=== PATIENT | female | born 1975 | race Caucasian/White ===

== ENCOUNTER 2021-12-29 12:40 | Observation (INO) ==
[2021-12-29 14:53] LABS: Amorphous Sediment,Urine Few per hpf (None-Few); Bilirubin,Urine Negative (Negative); Blood,Urine Large (Negative); Clarity,Urine Ex.Turbid (Clear); Color,Urine Yellow (Yellow); Glucose,Urine (UA) Normal (Normal); Ketones,Urine Negative (Negative); Leukocyte Esterase,Urine Moderate (Negative); Mucus,Urine Few per lpf (None-Few); Nitrite,Urine Negative (Negative); PH,Urine 7.5 pH Units (5.0-8.0); Protein,Urine >=300 mg/dL (Neg-Trace); RBC,Urine TNTC per hpf (0-3); Specific Gravity,Urine 1.028 (1.010-1.025); Squamous Epithelial Cell,Urine Moderate per hpf (None-Few); WBC,Urine 50-100 per hpf (0-3)
[2021-12-29] MEDS ORDERED: Morphine Sulfate 2 MG/ML SYRINGE IVP STA (18:07)
[2021-12-29] MEDS ORDERED: Melatonin 3 MG TABLET PO PRN (18:11)
[2021-12-29] MEDS ORDERED: Mag Hydrox/Al Hydrox/Simeth 30 ML UDC PO PRN (18:11)
[2021-12-29] MEDS ORDERED: Naloxone 0.4 MG/ML INJ IVP PRN (18:11)
[2021-12-29] MEDS ORDERED: MOM Conc 10 ML UD.LIQ PO PRN (18:11)
[2021-12-29] MEDS ORDERED: Acetaminophen 325 MG TABLET PO PRN (18:11)
[2021-12-29] MEDS ORDERED: Ondansetron 4 MG/2 ML VIAL IVP PRN (18:11)
[2021-12-29 18:14] LABS: Basophils % 0.4 %; Eosinophils % 0.5 %; Hematocrit 41.8 % (35.3-44.9); Immature Granulocytes % 0.2 % (0-4); Lymphocytes # 1.4 K/mcL (0.6-4.6); Lymphocytes % 24.8 %; Mean Corpuscular HGB Conc 33.5 g/dL (31.6-35.5); Mean Corpuscular Hemoglobin 30.2 pg (28.0-33.3); Mean Corpuscular Volume 90.1 fL (83.0-100.0); Mean Platelet Volume 12.6 fL (9.4-12.4); Monocytes # 0.4 K/mcL (0.0-1.3); Monocytes % 6.4 %; Neutrophils # 3.8 K/mcL (1.6-8.9); Platelet Count 165 K/mcL (140-400); Red Blood Count 4.64 M/mcL (3.82-4.97); Red Cell Distribution Width 13.2 % (11.5-14.5); Segmented Neutrophils % 67.7 %; White Blood Count 5.7 K/mcL (4.3-11.1)
[2021-12-29] MEDS ORDERED: Morphine Sulfate 2 MG/ML SYRINGE IVP PRN (18:15)
[2021-12-29] MEDS: 0.9 % Sodium Chloride 1,000 ML IVC SCH (18:36)
[2021-12-29 18:40] LABS: Alanine Aminotransferase 14 Units/L (7-52); Albumin 4.7 g/dL (3.5-5.7); Alkaline Phosphatase 52 Units/L (34-104); Aspartate Amino Transferase 15 Units/L (13-39); BUN/Creatinine Ratio 15 (6-26); Bilirubin,Direct 0.1 mg/dL (0.0-0.2); Bilirubin,Indirect 0.7 mg/dL (0.0-1.0); Bilirubin,Total 0.8 mg/dL (0.3-1.0); Blood Urea Nitrogen 14 mg/dL (6-20); Calcium 9.5 mg/dL (8.6-10.3); Carbon Dioxide 27 mEq/L (23-29); Chloride 104 mEq/L (98-107); Globulin 2.4 g/dL (2.4-3.5); Glucose 93 mg/dL (70-105); Lipase 19 Units/L (11-82); Osmolality,Calculated 288 (280-300); Potassium 3.6 mEq/L (3.5-5.1); Sodium 139 mEq/L (136-145); Total Protein 7.1 g/dL (6.4-8.9); eGFR For African Americans > 60 (> 60); eGFR For Non-African Americans > 60 (> 60)
[2021-12-29] MEDS ORDERED: cefTRIAXone 1,000 MG in 0.9 % Sodium Chloride Mini Bag 100 ML IVP SCH (19:00)
[2021-12-29] MEDS ORDERED: SUMAtriptan succinate 50 MG TABLET PO ONE (23:09)
[2021-12-29] MEDS ORDERED: Acetaminophen/Butalbital/CaffeineTABLET PO PRN (23:59)
[2021-12-30 01:54] LABS: Hematocrit 37.2 % (35.3-44.9); Mean Corpuscular HGB Conc 33.1 g/dL (31.6-35.5); Mean Corpuscular Hemoglobin 29.7 pg (28.0-33.3); Mean Corpuscular Volume 89.9 fL (83.0-100.0); Platelet Count 128 K/mcL (140-400); Red Blood Count 4.14 M/mcL (3.82-4.97); Red Cell Distribution Width 13.1 % (11.5-14.5); White Blood Count 5.2 K/mcL (4.3-11.1)
[2021-12-30 01:57] LABS: Hemoglobin 12.3 g/dL (11.5-15.4)
[2021-12-30 02:15] LABS: BUN/Creatinine Ratio 17 (6-26); Blood Urea Nitrogen 14 mg/dL (6-20); Calcium 8.4 mg/dL (8.6-10.3); Carbon Dioxide 26 mEq/L (23-29); Chloride 107 mEq/L (98-107); Glucose 120 mg/dL (70-105); Magnesium 1.9 mg/dL (1.6-2.6); Osmolality,Calculated 292 (280-300); Potassium 3.3 mEq/L (3.5-5.1); Sodium 140 mEq/L (136-145); eGFR For African Americans > 60 (> 60); eGFR For Non-African Americans > 60 (> 60)
[2021-12-30] MEDS: 0.9 % Sodium Chloride 1,000 ML IVC SCH (08:36)
[2021-12-30] MEDS ORDERED: hydrOXYzine pamoate 25 MG CAPSULE PO PRN ×2 (08:57→18:46)
[2021-12-30] MEDS ORDERED: Ubrogepant [Ubrelvy] 100 MG Tablet PO PRN (08:57)
[2021-12-30] MEDS ORDERED: Lactobacillus 1 EACH CAP.SPRINK PO SCH (09:00)
[2021-12-30] MEDS ORDERED: DEXTROAMPHETAMINE PO SCH (09:00)
[2021-12-30] MEDS ORDERED: AMPHETAMINE PO SCH (09:00)
[2021-12-30] MEDS ORDERED: Ketorolac 30 MG/ML VIAL IVP ONE (12:14)
[2021-12-30] MEDS ORDERED: Lidocaine -MPF 2% 5 ML VIAL ONE (16:59)
[2021-12-30] MEDS ORDERED: *HR* Midazolam HCl 2 MG/2 ML VIAL ONE (17:00)
[2021-12-30] MEDS ORDERED: *HR* Propofol 200 MG/20 ML VIAL IVP ONE (17:00)
[2021-12-30] MEDS ORDERED: *HR* FentaNYL (PF) 100 MCG/2 ML VIAL ONE (17:00)
[2021-12-30] MEDS ORDERED: *HR* HYDROmorphone PF 0.5 MG/0.5 ML SYRINGE IVP PRN (17:12)
[2021-12-30] MEDS ORDERED: *HR* OxyCODONE Immed Rel 5 MG TABLET PO PRN (17:12)
[2021-12-30] MEDS ORDERED: Ondansetron 4 MG/2 ML VIAL ONE (17:39)
[2021-12-30] MEDS ORDERED: Ondansetron 4 MG/2 ML VIAL IVP PRN (18:46)
[2021-12-30] MEDS ORDERED: Naloxone 0.4 MG/ML INJ IVP PRN (18:46)
[2021-12-30] MEDS ORDERED: Melatonin 3 MG TABLET PO PRN (18:46)
[2021-12-30] MEDS ORDERED: Acetaminophen 325 MG TABLET PO PRN (18:46)
[2021-12-30] MEDS ORDERED: Patient Taking Own Medication 1 EACH PO PRN (18:46)
[2021-12-30] MEDS ORDERED: Mag Hydrox/Al Hydrox/Simeth 30 ML UDC PO PRN (18:46)
[2021-12-30] MEDS ORDERED: Morphine Sulfate 2 MG/ML SYRINGE IVP PRN (18:46)
[2021-12-30] MEDS ORDERED: Acetaminophen/Butalbital/CaffeineTABLET PO PRN (18:46)
[2021-12-30] MEDS ORDERED: MOM Conc 10 ML UD.LIQ PO PRN (18:46)
[2021-12-30] MEDS ORDERED: cefTRIAXone 1,000 MG in 0.9 % Sodium Chloride Mini Bag 100 ML IVP SCH (19:00)
[2021-12-30] MEDS: Patient Taking Own Medication 1 EACH PO SCH (19:46)
[2021-12-31 07:01] VITALS: BP 136/81; PULSE 74; TEMP 97.9; O2SAT 98
[2021-12-31 07:02] LABS: Hematocrit 39.6 % (35.3-44.9); Hemoglobin 13.3 g/dL (11.5-15.4); Mean Corpuscular HGB Conc 33.6 g/dL (31.6-35.5); Mean Corpuscular Hemoglobin 29.8 pg (28.0-33.3); Mean Corpuscular Volume 88.6 fL (83.0-100.0); Mean Platelet Volume 12.8 fL (9.4-12.4); Platelet Count 148 K/mcL (140-400); Red Blood Count 4.47 M/mcL (3.82-4.97); Red Cell Distribution Width 13.1 % (11.5-14.5)
[2021-12-31 07:19] LABS: BUN/Creatinine Ratio 12 (6-26); Blood Urea Nitrogen 10 mg/dL (6-20); Calcium 9.4 mg/dL (8.6-10.3); Carbon Dioxide 27 mEq/L (23-29); Chloride 105 mEq/L (98-107); Glucose 122 mg/dL (70-105); Magnesium 1.9 mg/dL (1.6-2.6); Osmolality,Calculated 282 (280-300); Sodium 136 mEq/L (136-145); eGFR For African Americans > 60 (> 60); eGFR For Non-African Americans > 60 (> 60)
[2021-12-31 07:37] LABS: White Blood Count 8.9 K/mcL (4.3-11.1)
[2021-12-31] MEDS: Patient Taking Own Medication 1 EACH PO SCH (07:48)
[2021-12-31] MEDS ORDERED: Lactobacillus 1 EACH CAP.SPRINK PO SCH (09:00)
[2021-12-31] MEDS ORDERED: MOM Conc 10 ML UD.LIQ PO PRN (09:01)
[2021-12-31] MEDS ORDERED: Ketorolac 30 MG/ML VIAL IVP ONE (09:01)
== END 2021-12-31 11:01 | disposition home or self-care (01) ==
LOC: 3BNU 12:40 → EMEROOARM 12:40 → SUATTDRO 18:30 → 3BNU 19:35
PROVIDERS: ADMIT General Practice; ATTEND Internal Medicine

== ENCOUNTER 2022-01-06 11:51 | Observation (INO) ==
[2022-01-06] MEDS ORDERED: *HR* HYDROmorphone (PF) 1 MG/ML SYRINGE IVP ONE (13:15)
[2022-01-06 13:50] LABS: Basophils % 0.3 %; Eosinophils # 0.1 K/mcL (0.0-0.6); Hematocrit 36.7 % (35.3-44.9); Hemoglobin 12.2 g/dL (11.5-15.4); Immature Granulocytes % 0.1 % (0-4); Lymphocytes # 1.6 K/mcL (0.6-4.6); Lymphocytes % 23.7 %; Mean Corpuscular HGB Conc 33.2 g/dL (31.6-35.5); Mean Corpuscular Volume 90.2 fL (83.0-100.0); Mean Platelet Volume 12.1 fL (9.4-12.4); Monocytes # 0.5 K/mcL (0.0-1.3); Monocytes % 7.7 %; Neutrophils # 4.6 K/mcL (1.6-8.9); Platelet Count 150 K/mcL (140-400); Red Blood Count 4.07 M/mcL (3.82-4.97); Red Cell Distribution Width 13.3 % (11.5-14.5); Segmented Neutrophils % 67.2 %; White Blood Count 6.9 K/mcL (4.3-11.1)
[2022-01-06 13:52] LABS: Clarity,Urine Cloudy (Clear); Color,Urine Orange (Yellow)
[2022-01-06 13:54] LABS: Bacteria,Urine Few per hpf (None-Few); Mucus,Urine Few per lpf (None-Few); RBC,Urine TNTC per hpf (0-3); Squamous Epithelial Cell,Urine Moderate per hpf (None-Few); WBC,Urine 50-100 per hpf (0-3)
[2022-01-06 14:43] LABS: Alanine Aminotransferase 30 Units/L (7-52); Albumin/Globulin Ratio 1.7 (1.1-2.2); Alkaline Phosphatase 58 Units/L (34-104); Amylase 17 Units/L (29-103); Aspartate Amino Transferase 20 Units/L (13-39); BUN/Creatinine Ratio 12 (6-26); Bilirubin,Direct 0.1 mg/dL (0.0-0.2); Bilirubin,Indirect 0.2 mg/dL (0.0-1.0); Bilirubin,Total 0.3 mg/dL (0.3-1.0); Blood Urea Nitrogen 13 mg/dL (6-20); Calcium 9.2 mg/dL (8.6-10.3); Carbon Dioxide 27 mEq/L (23-29); Chloride 105 mEq/L (98-107); Globulin 2.4 g/dL (2.4-3.5); Glucose 82 mg/dL (70-105); Lipase 15 Units/L (11-82); Osmolality,Calculated 289 (280-300); Potassium 3.5 mEq/L (3.5-5.1); Sodium 140 mEq/L (136-145); Total Protein 6.4 g/dL (6.4-8.9); eGFR For African Americans > 60 (> 60); eGFR For Non-African Americans 56 (> 60)
[2022-01-06] MEDS ORDERED: cefTRIAXone 1,000 MG in Water for inj. (sterile) 10 ML IVP ONE (15:56)
[2022-01-06] MEDS ORDERED: *HR* Promethazine 25 MG/ML VIAL IM PRN (16:12)
[2022-01-06] MEDS ORDERED: Acetaminophen 325 MG TABLET PO PRN (16:12)
[2022-01-06] MEDS ORDERED: Ondansetron 4 MG/2 ML VIAL IVP PRN (16:12)
[2022-01-06] MEDS ORDERED: *HR* HYDROcodone/Acet 5/325 mg TABLET PO PRN (16:12)
[2022-01-06] MEDS ORDERED: Melatonin 3 MG TABLET PO PRN (16:12)
[2022-01-06] MEDS ORDERED: Naloxone 0.4 MG/ML INJ IVP PRN (16:12)
[2022-01-06] MEDS ORDERED: Ketorolac 30 MG/ML VIAL IVP PRN (16:12)
[2022-01-06] MEDS ORDERED: *HR* OxyCODONE Immed Rel 5 MG TABLET PO PRN (16:12)
[2022-01-07 07:19] LABS: Basophils % 0.4 %; Eosinophils # 0.1 K/mcL (0.0-0.6); Eosinophils % 2.7 %; Hematocrit 34.6 % (35.3-44.9); Hemoglobin 11.1 g/dL (11.5-15.4); Immature Granulocytes % 0.2 % (0-4); Lymphocytes # 1.7 K/mcL (0.6-4.6); Lymphocytes % 34.4 %; Mean Corpuscular HGB Conc 32.1 g/dL (31.6-35.5); Mean Corpuscular Hemoglobin 29.7 pg (28.0-33.3); Mean Corpuscular Volume 92.5 fL (83.0-100.0); Mean Platelet Volume 12.5 fL (9.4-12.4); Monocytes # 0.5 K/mcL (0.0-1.3); Monocytes % 10.1 %; Neutrophils # 2.5 K/mcL (1.6-8.9); Platelet Count 133 K/mcL (140-400); Red Blood Count 3.74 M/mcL (3.82-4.97); Red Cell Distribution Width 13.2 % (11.5-14.5); Segmented Neutrophils % 52.2 %; White Blood Count 4.8 K/mcL (4.3-11.1)
[2022-01-07 07:27] LABS: BUN/Creatinine Ratio 14 (6-26); Blood Urea Nitrogen 14 mg/dL (6-20); Calcium 8.7 mg/dL (8.6-10.3); Carbon Dioxide 30 mEq/L (23-29); Chloride 106 mEq/L (98-107); Glucose 94 mg/dL (70-105); Osmolality,Calculated 290 (280-300); Potassium 4.2 mEq/L (3.5-5.1); Sodium 140 mEq/L (136-145); eGFR For African Americans > 60 (> 60); eGFR For Non-African Americans 58 (> 60)
[2022-01-07] MEDS ORDERED: Isovue-300 50ML VIAL ONE (07:29)
[2022-01-07] MEDS ORDERED: Famotidine 20 MG/2 ML VIAL IVP ONE (08:33)
[2022-01-07] MEDS ORDERED: Acetaminophen IV 1,000 MG/100 ML BAG IVPB ONE ×2 (08:34→09:07)
[2022-01-07] MEDS ORDERED: *HR* FentaNYL (PF) 100 MCG/2 ML VIAL ONE ×2 (08:36→10:12)
[2022-01-07] MEDS ORDERED: Lidocaine -MPF 2% 5 ML VIAL ONE (08:36)
[2022-01-07] MEDS ORDERED: *HR* Midazolam HCl 2 MG/2 ML VIAL ONE (08:36)
[2022-01-07] MEDS ORDERED: *HR* Propofol 200 MG/20 ML VIAL IVP ONE (08:36)
[2022-01-07] MEDS ORDERED: Ondansetron 4 MG/2 ML VIAL ONE (08:36)
[2022-01-07] MEDS ORDERED: Ringers Solution, Lactated 1,000 ML ONE (09:04)
[2022-01-07] MEDS ORDERED: Famotidine 20 MG/2 ML VIAL ONE (09:08)
[2022-01-07] MEDS ORDERED: *HR* HYDROmorphone PF 0.5 MG/0.5 ML SYRINGE IVP PRN (09:17)
[2022-01-07] MEDS ORDERED: Ondansetron 4 MG/2 ML VIAL IVP PRN (09:17)
[2022-01-07] MEDS ORDERED: Ketorolac 30 MG/ML VIAL IVP ONE (10:00)
[2022-01-07 10:47] VITALS: TEMP 97.8
[2022-01-07 11:00] VITALS: O2SAT 98
[2022-01-07 11:11] VITALS: BP 148/82; PULSE 72
== END 2022-01-07 13:05 | disposition home or self-care (01) ==
LOC: 3BNU 11:51 → EMEROOARM 11:51 → 3BNU 16:35
PROVIDERS: ADMIT Internal Medicine; ATTEND Internal Medicine